=== PATIENT | male | born 1940 | race Caucasian/White ===

== ENCOUNTER 2017-02-27 15:26 | Inpatient (IN) ==
[2017-02-27 16:19] LABS: BUN/Creatinine Ratio 20 (6-26); Blood Urea Nitrogen 68 mg/dL (8-26); Calcium 8.6 mg/dL (8.6-10.8); Carbon Dioxide 22 mEq/L (19-29); Chloride 106 mEq/L (98-109); Glucose 172 mg/dL (70-99); Osmolality,Calculated 316 (280-300); Potassium 3.8 mEq/L (3.5-4.5); Sodium 141 mEq/L (136-145); eGFR For African Americans 22 (> 60); eGFR For Non-African Americans 18 (> 60)
[2017-02-27] MEDS ORDERED: 0.9 % Sodium Chloride 1,000 ML IVC ONE (16:52)
[2017-02-27 16:55] LABS: Basophils % 0.1 %; Hematocrit 35.4 % (37.5-50.1); Hemoglobin 11.8 g/dL (12.9-16.9); Immature Granulocytes % 0.9 % (0-4); Immature Platelets 3.7 % (1.1-6.1); Lymphocytes # 0.7 K/mcL (0.6-4.6); Lymphocytes % 6.6 %; Mean Corpuscular HGB Conc 33.3 g/dL (31.6-35.5); Mean Corpuscular Hemoglobin 31.1 pg (28.0-33.3); Mean Corpuscular Volume 93.2 fL (83.0-100.0); Mean Platelet Volume 10.6 fL (9.4-12.4); Monocytes # 0.8 K/mcL (0.0-1.3); Monocytes % 7.8 %; Neutrophils # 8.4 K/mcL (1.6-8.9); Platelet Count 216 K/mcL (140-400); Red Cell Distribution Width 14.6 % (11.5-14.5); Segmented Neutrophils % 84.6 %
[2017-02-27 16:55] LABS: Bilirubin,Urine Small (Negative); Blood,Urine Negative (Negative); Clarity,Urine Cloudy (Clear); Color,Urine Dark Yellow (Yellow); Glucose,Urine (UA) Normal (Normal); Ketones,Urine Negative (Negative); Leukocyte Esterase,Urine Negative (Negative); Nitrite,Urine Negative (Negative); Protein,Urine Negative (Neg-Trace); Specific Gravity,Urine 1.012 (1.010-1.025); Urobilinogen,Urine Normal (Normal)
[2017-02-27 17:09] LABS: Alanine Aminotransferase 62 Units/L (0-55); Albumin 2.5 g/dL (3.5-5.0); Albumin/Globulin Ratio 0.8 (1.1-2.2); Alkaline Phosphatase 211 Units/L (38-126); Aspartate Amino Transferase 42 Units/L (5-34); Bilirubin,Direct 4.1 mg/dL (0.0-0.5); Bilirubin,Indirect 1.1 mg/dL (0.0-1.2); Bilirubin,Total 5.2 mg/dL (0.2-1.2); Globulin 3.1 g/dL (2.4-3.5); Total Protein 5.6 g/dL (6.0-8.3)
[2017-02-27 17:10] LABS: Lipase < 4 Units/L (8-78)
--- NOTE | 2017-02-27 17:19 | Emergency Department Note ---
Disposition Clinical Impression: Hyperbilirubinemia Acute renal failure Qualifiers: Acute renal failure type: unspecified Qualified Code(s): N17.9 - Acute kidney failure, unspecified Disposition: Admitted As Inpatient Condition: Good Time of Disposition: 17:20 General Adult HPI - General Chief complaint: ED Recheck/Abnormal Lab/Rx Stated complaint: " sent me here for fluids" Time Seen by Provider: 02/27/17 15:45 Source: patient Limitations: no limitations Nursing Notes Reviewed: Yes Vital Signs Reviewed: Yes - History of Present Illness HPI Narrative: 76-year-old male sent in by primary care provider for reevaluation of labs. Patient states that he was recently diagnosed with a pancreatic mass and had a stent placed in his common bile duct due to jaundice. Patient states that he has been unable to produce satisfactory amount of urine over the past 3 days however was able to urinate today. Patient's creatinine was significantly elevated on outpatient testing and was sent for further evaluation. Patient denies fever, chills, nausea, vomiting, diarrhea. He noticed a change in color of his urine and stool associated with his jaundice. Patient denies chest pain , shortness of breath, abdominal pain, syncope. Pain Scale: 0 - Related Data Home Medications Medication Instructions Recorded Confirmed Aspirin Enteric Coated [Aspirin EC] 81 mg PO DAILY 04/15/16 02/26/17 Furosemide [Lasix] 40 mg PO DAILY 04/15/16 02/27/17 Oxycodone HCl/Acetaminophen 1 tab PO Q6H PRN 04/15/16 02/27/17 [Percocet 10-325 mg Tablet] Amiodarone HCl [Pacerone] 400 mg PO DAILY 02/19/17 02/27/17 Warfarin [Coumadin] 2.5 mg PO DAILY 02/19/17 02/26/17 Carvedilol [Coreg] 25 mg PO BID 02/26/17 02/27/17 Lisinopril [Zestril] 10 mg PO DAILY 02/26/17 02/27/17 Allergies Allergy/AdvReac Type Severity Reaction Status Date / Time No Known Allergies Allergy Verified 02/26/17 12:31 All systems ED: reviewed and negative except as stated. Past Medical History - Past Medical History Attestation: Yes The following information was validated with the patient. Medical history: Reports: arthritis, atrial fibrillation, CHF, COPD, coronary artery disease, DVT, hypertension, myocardial infarction, peripheral artery disease Surgical history: Reports: angioplasty/stent, knee replacement, other Psychiatric history: Reports: no psych history - Social History Smoking Status: Never smoker Smokeless Tobacco Status: No Alcohol use: Reports: none Drug use: Reports: none Physical Exam General: Alert and in no acute distress Skin: Warm, dry, intact, jaundiced skin with scleral icterus Head: Normocephalic and atraumatic Neck: Supple, trachea midline and no tenderness Cardiovascular: RRR, no murmur, normal perfusion Respiratory: CTAB, no wheezing, cough, or respiratory distress Musculoskeletal: Normal strength, no tenderness, swelling or deformity GI: Soft, nontender, nondistended. Bowel sounds present Neuro: A&O to person, place, time and situation. No focal deficits noted on exam Psychiatric: cooperative and appropriate mood and affect. - General Limitations: no limitations General appearance: alert Course Vital Signs Temperature 97.5 F L 02/27/17 15:53 Pulse Rate 75 02/27/17 15:53 Respiratory Rate 16 02/27/17 15:53 Blood Pressure 97/60 02/27/17 15:53 O2 Sat by Pulse Oximetry 96 02/27/17 15:53 Temperature 98.4 F 02/27/17 23:03 Pulse Rate 76 02/27/17 23:03 Respiratory Rate 16 02/27/17 23:03 Blood Pressure 116/74 02/27/17 23:03 O2 Sat by Pulse Oximetry 98 02/27/17 23:03 Oxygen Delivery Oxygen Delivery Room Air Medical Decision Making - MDM Narrative Medical decision making narrative: Upon review of the patient's chart he had received a CTA of the chest to rule out PE 15 days prior to today. No history of kidney failure and has never seen a urologist. Patient comfortable with the plan for admittance to the hospital for further care and evaluation. - Lab Data Result diagrams: 02/27/17 20:28 02/27/17 15:56 Lab Results 02/27/17 02/27/17 02/27/17 Range/Units 15:56 16:32 16:32 WBC (4.3-11.1) K/mcL RBC (4.19-5.50) M/mcL Hgb (12.9-16.9) g/dL Hct (37.5-50.1) % MCV (83.0-100.0) fL MCH (28.0-33.3) pg MCHC (31.6-35.5) g/dL RDW (11.5-14.5) % Plt Count (140-400) K/mcL MPV (9.4-12.4) fL Immature Gran % (0-4) % Seg Neutrophils % % Lymphocytes % % Monocytes % % Eosinophils % % Basophils % % Neutrophils # (1.6-8.9) K/mcL Lymphocytes # (0.6-4.6) K/mcL Monocytes # (0.0-1.3) K/mcL Eosinophils # (0.0-0.6) K/mcL Basophils # (0.0-0.2) K/mcL Immature Plt Fraction (1.1-6.1) % PT (9.4-12.1) Seconds INR APTT (26.0-36.0) Seconds Sodium 141 (136-145) mEq/L Potassium 3.8 (3.5-4.5) mEq/L Chloride 106 (98-109) mEq/L Carbon Dioxide 22 (19-29) mEq/L BUN 68 H (8-26) mg/dL Creatinine 3.39 H (0.72-1.25) mg/dL Est GFR ( Amer) 22 L (> 60) Est GFR (Non-Af Amer) 18 L (> 60) BUN/Creatinine Ratio 20 (6-26) Glucose 172 H (70-99) mg/dL Calculated Osmolality 316 H (280-300) Calcium 8.6 (8.6-10.8) mg/dL Total Bilirubin 5.2 H (0.2-1.2) mg/dL Direct Bilirubin 4.1 H (0.0-0.5) mg/dL Indirect Bilirubin 1.1 (0.0-1.2) mg/dL AST 42 H (5-34) Units/L ALT 62 H (0-55) Units/L Alkaline Phosphatase 211 H (38-126) Units/L Serum Total Protein 5.6 L (6.0-8.3) g/dL Albumin 2.5 L (3.5-5.0) g/dL Globulin 3.1 (2.4-3.5) g/dL Albumin/Globulin Ratio 0.8 L (1.1-2.2) Lipase < 4 L (8-78) Units/L Urine Color Dark Yellow (Yellow) Urine Clarity Cloudy A (Clear) Urine pH 6.0 (5.0-8.0) pH Units Ur Specific [place] 1.012 (1.010-1.025) Urine Protein Negative (Neg-Trace) mg/dL Urine Glucose (UA) Normal (Normal) mg/dL Urine Ketones Negative (Negative) mg/dL Urine Blood Negative (Negative) Urine Nitrite Negative (Negative) Urine Bilirubin Small H (Negative) Urine Urobilinogen Normal (Normal) mg/dL Ur Leukocyte Esterase Negative (Negative) Urine Microscopic WBC 0-3 (0-3) per hpf Ur Squamous Epith Cells Few (None-Few) per lpf Amorphous Sediment Few (Few) Ur Culture Indicated? NO (NO) Urine Creatinine 58 mg/dL Urine Microalbumin 6 mg/L Microalb/Creat Ratio 10 (0-30) Protein/Creatinin Ratio (0-0.20) mg/mg Urine Total Protein (1-14) mg/dL 02/27/17 02/27/17 02/27/17 Range/Units 16:32 16:40 20:28 WBC 9.9 9.7 (4.3-11.1) K/mcL RBC 3.80 L 3.91 L (4.19-5.50) M/mcL Hgb 11.8 L 12.2 L (12.9-16.9) g/dL Hct 35.4 L 36.9 L (37.5-50.1) % MCV 93.2 D 94.4 (83.0-100.0) fL MCH 31.1 31.2 (28.0-33.3) pg MCHC 33.3 33.1 (31.6-35.5) g/dL RDW 14.6 H 14.8 H (11.5-14.5) % Plt Count 216 229 (140-400) K/mcL MPV 10.6 10.9 (9.4-12.4) fL Immature Gran % 0.9 (0-4) % Seg Neutrophils % 84.6 % Lymphocytes % 6.6 % Monocytes % 7.8 % Eosinophils % 0.0 % Basophils % 0.1 % Neutrophils # 8.4 (1.6-8.9) K/mcL Lymphocytes # 0.7 (0.6-4.6) K/mcL Monocytes # 0.8 (0.0-1.3) K/mcL Eosinophils # 0.0 (0.0-0.6) K/mcL Basophils # 0.0 (0.0-0.2) K/mcL Immature Plt Fraction 3.7 (1.1-6.1) % PT (9.4-12.1) Seconds INR APTT (26.0-36.0) Seconds Sodium (136-145) mEq/L Potassium (3.5-4.5) mEq/L Chloride (98-109) mEq/L Carbon Dioxide (19-29) mEq/L BUN (8-26) mg/dL Creatinine (0.72-1.25) mg/dL Est GFR ( Amer) (> 60) Est GFR (Non-Af Amer) (> 60) BUN/Creatinine Ratio (6-26) Glucose (70-99) mg/dL Calculated Osmolality (280-300) Calcium (8.6-10.8) mg/dL Total Bilirubin (0.2-1.2) mg/dL Direct Bilirubin (0.0-0.5) mg/dL Indirect Bilirubin (0.0-1.2) mg/dL AST (5-34) Units/L ALT (0-55) Units/L Alkaline Phosphatase (38-126) Units/L Serum Total Protein (6.0-8.3) g/dL Albumin (3.5-5.0) g/dL Globulin (2.4-3.5) g/dL Albumin/Globulin Ratio (1.1-2.2) Lipase (8-78) Units/L Urine Color (Yellow) Urine Clarity (Clear) Urine pH (5.0-8.0) pH Units Ur Specific [place] (1.010-1.025) Urine Protein (Neg-Trace) mg/dL Urine Glucose (UA) (Normal) mg/dL Urine Ketones (Negative) mg/dL Urine Blood (Negative) Urine Nitrite (Negative) Urine Bilirubin (Negative) Urine Urobilinogen (Normal) mg/dL Ur Leukocyte Esterase (Negative) Urine Microscopic WBC (0-3) per hpf Ur Squamous Epith Cells (None-Few) per lpf Amorphous Sediment (Few) Ur Culture Indicated? (NO) Urine Creatinine 59 mg/dL Urine Microalbumin mg/L Microalb/Creat Ratio (0-30) Protein/Creatinin Ratio < 0.12 (0-0.20) mg/mg Urine Total Protein < 7 (1-14) mg/dL 02/27/17 Range/Units 20:28 WBC (4.3-11.1) K/mcL RBC (4.19-5.50) M/mcL Hgb (12.9-16.9) g/dL Hct (37.5-50.1) % MCV (83.0-100.0) fL MCH (28.0-33.3) pg MCHC (31.6-35.5) g/dL RDW (11.5-14.5) % Plt Count (140-400) K/mcL MPV (9.4-12.4) fL Immature Gran % (0-4) % Seg Neutrophils % % Lymphocytes % % Monocytes % % Eosinophils % % Basophils % % Neutrophils # (1.6-8.9) K/mcL Lymphocytes # (0.6-4.6) K/mcL Monocytes # (0.0-1.3) K/mcL Eosinophils # (0.0-0.6) K/mcL Basophils # (0.0-0.2) K/mcL Immature Plt Fraction (1.1-6.1) % PT 12.3 H (9.4-12.1) Seconds INR 1.1 APTT 26.5 (26.0-36.0) Seconds Sodium (136-145) mEq/L Potassium (3.5-4.5) mEq/L Chloride (98-109) mEq/L Carbon Dioxide (19-29) mEq/L BUN (8-26) mg/dL Creatinine (0.72-1.25) mg/dL Est GFR ( Amer) (> 60) Est GFR (Non-Af Amer) (> 60) BUN/Creatinine Ratio (6-26) Glucose (70-99) mg/dL Calculated Osmolality (280-300) Calcium (8.6-10.8) mg/dL Total Bilirubin (0.2-1.2) mg/dL Direct Bilirubin (0.0-0.5) mg/dL Indirect Bilirubin (0.0-1.2) mg/dL AST (5-34) Units/L ALT (0-55) Units/L Alkaline Phosphatase (38-126) Units/L Serum Total Protein (6.0-8.3) g/dL Albumin (3.5-5.0) g/dL Globulin (2.4-3.5) g/dL Albumin/Globulin Ratio (1.1-2.2) Lipase (8-78) Units/L Urine Color (Yellow) Urine Clarity (Clear) Urine pH (5.0-8.0) pH Units Ur Specific [place] (1.010-1.025) Urine Protein (Neg-Trace) mg/dL Urine Glucose (UA) (Normal) mg/dL Urine Ketones (Negative) mg/dL Urine Blood (Negative) Urine Nitrite (Negative) Urine Bilirubin (Negative) Urine Urobilinogen (Normal) mg/dL Ur Leukocyte Esterase (Negative) Urine Microscopic WBC (0-3) per hpf Ur Squamous Epith Cells (None-Few) per lpf Amorphous Sediment (Few) Ur Culture Indicated? (NO) Urine Creatinine mg/dL Urine Microalbumin mg/L Microalb/Creat Ratio (0-30) Protein/Creatinin Ratio (0-0.20) mg/mg Urine Total Protein (1-14) mg/dL Critical Care Time Critical Care Time: Yes Total Critical Care Time: 45 Attestation: The high probability of a clinically significant, sudden or life threatening deterioration of the 45 system(s) required my full and direct attention, intervention and personal management. The aggregate critical care time was 45 minutes. This time is in addition to time spent performing reported procedures but includes the following: x Data Review and interpretation x Patient assessment and monitoring of vital signs x Documentation x Medication orders and management
[2017-02-27 17:23] LABS: Squamous Epithelial Cell,Urine Few per lpf (None-Few)
[2017-02-27 17:24] LABS: Amorphous Sediment,Urine Few (Few); WBC,Urine 0-3 per hpf (0-3)
[2017-02-27] MEDS ORDERED: Naloxone 0.4 MG/ML INJ IVP PRN (18:22)
[2017-02-27] MEDS ORDERED: *HR* OxyCODONE/APAP 10/325 TABLET PO PRN (18:24)
--- NOTE | 2017-02-27 18:33 | Internal Med History&Physical ---
<Jason Wilson H - Last Filed: 02/27/17 20:54> Date of Encounter: 02/27/17 Internal Medicine - H&P: HPI History of present illness: Mr. Rey is a 76 year old male Internal Medicine - H&P: Meds Aspirin Enteric Coated [Aspirin EC] 81 mg PO DAILY 04/15/16 [History] Furosemide [Lasix] 40 mg PO DAILY 04/15/16 [History] Oxycodone HCl/Acetaminophen [Percocet 10-325 mg Tablet] 1 tab PO Q6H PRN [History] Amiodarone HCl [Pacerone] 400 mg PO DAILY 02/19/17 [History] Warfarin [Coumadin] 2.5 mg PO DAILY 02/19/17 [History] Carvedilol [Coreg] 25 mg PO BID 02/26/17 [History] Lisinopril [Zestril] 10 mg PO DAILY 02/26/17 [History] Allergies No Known Allergies Allergy (Verified 02/26/17 12:31) All Systems PM: A 10-system review of systems was performed and is negative for pertinent findings except as documented above in the HPI. - Constitutional Vitals: Temp Pulse Resp BP Pulse Ox 97.7 F 85 18 116/71 98 02/27/17 19:33 02/27/17 19:33 02/27/17 19:33 02/27/17 19:33 02/27/17 19:33 Internal Med - H&P Results - Labs CBC & Chem 7: 02/27/17 20:28 02/27/17 15:56 Labs: Short CBC 02/27/17 Range/Units 20:28 WBC 9.7 (4.3-11.1) K/mcL Hgb 12.2 L (12.9-16.9) g/dL Hct 36.9 L (37.5-50.1) % Plt Count 229 (140-400) K/mcL - Attending Attestation The patient is refusing blood thinners, he was offered heparin. Admitted as inpatient, expected to stay more than 2 midnights. Full code. Time spent on this admission 40 minutes. High risk of complications from acute renal failure <Carlyn Crook M - Last Filed: 02/27/17 21:58> Date of Encounter: 02/27/17 Time of Encounter: 18:31 Assessment and Plan (1) Acute renal failure Current visit: Yes Status: Acute Patient's creatinine has ranged 3.3-3.7 over the last 3 days, trending down. Previous Cr of 1.5 on 02/17 and previous baseline looks to be 1.1. Patient received IV contrast for a chest CT on 01/23 and then again for CT abdomen on 02/11 and later that same day for a CTA. Patient likely has contrast related nephropathy. IV fluids, 1L bolus given in ED. 0.9NS at 100mL/hr. Hold lisinopril and lasix Random urine Protein/Creatinine and sodium. UA was not concerning for infection. Retroperitoneal ultrasound Recheck chemistry tomorrow morning. Qualifiers: Acute renal failure type: unspecified Qualified Code(s): N17.9 - Acute kidney failure, unspecified (2) Pancreatic mass Current visit: Yes Status: Acute Patient recently diagnosed with pancreatic mass, had ERCP with biopsy and biliary stent placed yesterday by Dr. Rojas. Biopsy results are not back yet. Patient has follow up scheduled with Dr. Rojas on Thursday. (3) COPD (chronic obstructive pulmonary disease) Current visit: Yes Status: Acute Patient denies any increased shortness of breath or cough. Duonebs QID PRN for wheezing or shortness of breath. Qualifiers: COPD type: unspecified COPD Qualified Code(s): J44.9 - Chronic obstructive pulmonary disease, unspecified (4) History of DVT (deep vein thrombosis) Current visit: Yes Status: Acute Patient on aspirin and coumadin for history of DVT. These were held for ERCP yesterday and he was instructed not to restart until he follow up with Dr. Rojas on Thursday. Will start heparin drip due to patient's risk for DVT/PE (5) Afib Current visit: Yes Status: Acute Patient with chronic afib on amiodarone, carvedilol for rate and rhythm control and coumadin for anti-coagulation. His coumadin has been held for 13 days for his ERCP. Given his afib, history of DVT, and recent TIA-like symptoms, will start a heparin drip for prophylaxis. Qualifiers: Atrial fibrillation type: chronic Qualified Code(s): I48.2 - Chronic atrial fibrillation (6) Hyperbilirubinemia Current visit: Yes Status: Acute (7) DVT prophylaxis Current visit: Yes Status: Acute Ambulate TID anti-embolic stockings Heparin drip Internal Medicine - H&P: HPI Chief complaint: acute kidney failure Admitted From: Emergency Dept Plans for Post Hospital Care: Home History of present illness: Mr. Rey is a 76 year old male with COPD, afib, CAD, history of DVT, HTN, PAD, recent diagnosis of pancreatic mass s/p biopsy and biliary stent placement yesterday who presented to the ED today at the instruction of his PCP due to elevated creatinine. His creatinine over the last few days has been 3.3-3.7, up from his previous value of 1.5 on 02/17 and up from his normal baseline of 1.1. He reports 3 days ago, he had an episode of lip numbness and blurry vision that lasted several hours, he then noted decreased urine output. He reports his urine output has increased, but his urine is still dark. Denies any pain or burning with urination. Denies any headache, chest pain, palpitations, decreased appetite or poor oral intake. He had been losing weight (reportedly 75 lbs) and getting progressively weaker over the last 6 months, and his PCP evaluated him earlier this month with a CT of the Abdomen and found a pancreatic mass suspicious for malignancy, and there was concern for PE, so a CTA was then obtained (negative for PE). Yesterday, patient had an ERCP with Dr. Rojas and had a biopsy of the pancreatic mass and biliary stent placed for obstructive jaundice. Evaluation in the ER was consistent with the MYRANDA with creatinine of 3.39 and BUN of 68. Potassium was normal at 3.8, and CO2 was normal at 22. Bilirubin has come down to 5.2 from 7.9 yesterday. On exam, patient alert and oriented, jaundiced, in no distress. Heart has irregular rhythm, lungs are clear to auscultation bilaterally. Past Med Surg Social Fam HX - Past Medical History Medical history: arthritis, atrial fibrillation, CHF, COPD, coronary artery disease, DVT, hypertension, myocardial infarction, peripheral artery disease Psychiatric history: no psych history - Past Surgical History Surgical History: angioplasty/stent, knee replacement, other - Social History Smoking Status: Former smoker Smokeless Tobacco Status: No Alcohol use: none Drug use: none - Family History Mother History Unknown: Yes Living Status: All Systems PM: A 10-system review of systems was performed and is negative for pertinent findings except as documented above in the HPI. - Constitutional Constitutional: no chills, no fever(s), no night sweats - EENT Eyes: no change in vision, no discharge, no pain, no photophobia Ears: no ear discharge, no ear pain, no tinnitus Nose, mouth and throat: no dysphagia, no nasal discharge, no neck pain, no sore throat - Cardiovascular Cardiovascular ROS IM: no chest pain, no diaphoresis, no dyspnea, no lightheadedness, no palpitations, no syncope - Respiratory Respiratory: no cough, no dyspnea, no wheezing, no excessive phlegm production - Gastrointestinal Gastrointestinal: no abdominal pain, no diarrhea, no hematemesis, no hematochezia, no melena, no nausea, no vomiting - Genitourinary Genitourinary ROS male: difficulty urinating (low urine output for last 3 days) - Musculoskeletal Musculoskeletal ROS IM: no numbness, no tingling - Integumentary Integumentary IM: no rash, no unusual bruising - Neurological Neurological ROS: no confusion, no convulsions, no focal weakness, no numbness, no tingling, no tremor(s) - Hematologic/Lymphatic Hematologic/Lymphatic: no easy bruising - Constitutional Vitals: Temp Pulse Resp BP Pulse Ox 97.5 F L 73 14 111/74 97 02/27/17 15:53 02/27/17 17:15 02/27/17 18:17 02/27/17 18:17 02/27/17 17:15 General appearance: Present: A&O X 3, pleasant, no acute distress - Head Head exam: Present: atraumatic, normocephalic - Eye Eye exam: Present: PERRL, conjuntiva pink, sclera anicteric Pupils: Present: PERRL - Neck Neck exam general surgery: Present: supple, trachea midline. Absent: lymphadenopathy - Respiratory Respiratory exam: Present: CTAB. Absent: accessory muscle use, rales, rhonchi, wheezes - Cardiovascular Cardiovascular exam: Present: RRR, +S1, +S2. Absent: diastolic murmur, gallop, rubs, systolic murmur - GI/Abdominal GI/Abdominal exam: Present: normal bowel sounds, soft, no peritoneal signs. Absent: distended, tenderness - Extremities Exam Extremities exam: Present: pedal edema (bilateral lower extremity edema), warm, radial pulses palpable and symetrical. Absent: calf tenderness, cyanotic - Neurological Exam Neurological exam: Present: CN II-XII intact, oriented X3, no focal deficits. Absent: facial droop, speech deficit - Skin Skin exam: Present: dry, intact Additional comments: jaundice Internal Med - H&P Results - Labs CBC & Chem 7: 02/27/17 20:28 02/27/17 15:56 Labs: All Lab Results (24 Hours) 02/27/17 02/27/17 02/27/17 Range/Units 15:56 16:32 16:32 WBC (4.3-11.1) K/mcL RBC (4.19-5.50) M/mcL Hgb (12.9-16.9) g/dL Hct (37.5-50.1) % MCV (83.0-100.0) fL MCH (28.0-33.3) pg MCHC (31.6-35.5) g/dL RDW (11.5-14.5) % Plt Count (140-400) K/mcL MPV (9.4-12.4) fL Immature Gran % (0-4) % Seg Neutrophils % % Lymphocytes % % Monocytes % % Eosinophils % % Basophils % % Neutrophils # (1.6-8.9) K/mcL Lymphocytes # (0.6-4.6) K/mcL Monocytes # (0.0-1.3) K/mcL Eosinophils # (0.0-0.6) K/mcL Basophils # (0.0-0.2) K/mcL Immature Plt Fraction (1.1-6.1) % Sodium 141 (136-145) mEq/L Potassium 3.8 (3.5-4.5) mEq/L Chloride 106 (98-109) mEq/L Carbon Dioxide 22 (19-29) mEq/L BUN 68 H (8-26) mg/dL Creatinine 3.39 H (0.72-1.25) mg/dL Est GFR ( Amer) 22 L (> 60) Est GFR (Non-Af Amer) 18 L (> 60) BUN/Creatinine Ratio 20 (6-26) Glucose 172 H (70-99) mg/dL Calculated Osmolality 316 H (280-300) Calcium 8.6 (8.6-10.8) mg/dL Total Bilirubin 5.2 H (0.2-1.2) mg/dL Direct Bilirubin 4.1 H (0.0-0.5) mg/dL Indirect Bilirubin 1.1 (0.0-1.2) mg/dL AST 42 H (5-34) Units/L ALT 62 H (0-55) Units/L Alkaline Phosphatase 211 H (38-126) Units/L Serum Total Protein 5.6 L (6.0-8.3) g/dL Albumin 2.5 L (3.5-5.0) g/dL Globulin 3.1 (2.4-3.5) g/dL Albumin/Globulin Ratio 0.8 L (1.1-2.2) Lipase < 4 L (8-78) Units/L Urine Color Dark Yellow (Yellow) Urine Clarity Cloudy A (Clear) Urine pH 6.0 (5.0-8.0) pH Units Ur Specific [place] 1.012 (1.010-1.025) Urine Protein Negative (Neg-Trace) mg/dL Urine Glucose (UA) Normal (Normal) mg/dL Urine Ketones Negative (Negative) mg/dL Urine Blood Negative (Negative) Urine Nitrite Negative (Negative) Urine Bilirubin Small H (Negative) Urine Urobilinogen Normal (Normal) mg/dL Ur Leukocyte Esterase Negative (Negative) Urine Microscopic WBC 0-3 (0-3) per hpf Ur Squamous Epith Cells Few (None-Few) per lpf Amorphous Sediment Few (Few) Ur Culture Indicated? NO (NO) Urine Creatinine 58 mg/dL Urine Microalbumin 6 mg/L Microalb/Creat Ratio 10 (0-30) Protein/Creatinin Ratio (0-0.20) mg/mg Urine Total Protein (1-14) mg/dL 02/27/17 02/27/17 Range/Units 16:32 16:40 WBC 9.9 (4.3-11.1) K/mcL RBC 3.80 L (4.19-5.50) M/mcL Hgb 11.8 L (12.9-16.9) g/dL Hct 35.4 L (37.5-50.1) % MCV 93.2 D (83.0-100.0) fL MCH 31.1 (28.0-33.3) pg MCHC 33.3 (31.6-35.5) g/dL RDW 14.6 H (11.5-14.5) % Plt Count 216 (140-400) K/mcL MPV 10.6 (9.4-12.4) fL Immature Gran % 0.9 (0-4) % Seg Neutrophils % 84.6 % Lymphocytes % 6.6 % Monocytes % 7.8 % Eosinophils % 0.0 % Basophils % 0.1 % Neutrophils # 8.4 (1.6-8.9) K/mcL Lymphocytes # 0.7 (0.6-4.6) K/mcL Monocytes # 0.8 (0.0-1.3) K/mcL Eosinophils # 0.0 (0.0-0.6) K/mcL Basophils # 0.0 (0.0-0.2) K/mcL Immature Plt Fraction 3.7 (1.1-6.1) % Sodium (136-145) mEq/L Potassium (3.5-4.5) mEq/L Chloride (98-109) mEq/L Carbon Dioxide (19-29) mEq/L BUN (8-26) mg/dL Creatinine (0.72-1.25) mg/dL Est GFR ( Amer) (> 60) Est GFR (Non-Af Amer) (> 60) BUN/Creatinine Ratio (6-26) Glucose (70-99) mg/dL Calculated Osmolality (280-300) Calcium (8.6-10.8) mg/dL Total Bilirubin (0.2-1.2) mg/dL Direct Bilirubin (0.0-0.5) mg/dL Indirect Bilirubin (0.0-1.2) mg/dL AST (5-34) Units/L ALT (0-55) Units/L Alkaline Phosphatase (38-126) Units/L Serum Total Protein (6.0-8.3) g/dL Albumin (3.5-5.0) g/dL Globulin (2.4-3.5) g/dL Albumin/Globulin Ratio (1.1-2.2) Lipase (8-78) Units/L Urine Color (Yellow) Urine Clarity (Clear) Urine pH (5.0-8.0) pH Units Ur Specific [place] (1.010-1.025) Urine Protein (Neg-Trace) mg/dL Urine Glucose (UA) (Normal) mg/dL Urine Ketones (Negative) mg/dL Urine Blood (Negative) Urine Nitrite (Negative) Urine Bilirubin (Negative) Urine Urobilinogen (Normal) mg/dL Ur Leukocyte Esterase (Negative) Urine Microscopic WBC (0-3) per hpf Ur Squamous Epith Cells (None-Few) per lpf Amorphous Sediment (Few) Ur Culture Indicated? (NO) Urine Creatinine 59 mg/dL Urine Microalbumin mg/L Microalb/Creat Ratio (0-30) Protein/Creatinin Ratio < 0.12 (0-0.20) mg/mg Urine Total Protein < 7 (1-14) mg/dL - Diagnostic Studies Chest x-ray Additional comments: Chest X-Ray 02/27/17 17:35 IMPRESSION: Prominent interstitial change related to COPD, with focal increased peribronchovascular markings in the right infrahilar region. Though these changes are concerning for bronchiolitis or bronchopneumonia, they appear unchanged from 2012 and could represent chronic postinflammatory change. No definite new infiltrate is seen. D/ / Mathew Eddy MD / Mathew Eddy MD Interpreting Provider: Mathew Eddy MD
[2017-02-27] MEDS: 0.9 % Sodium Chloride 1,000 ML IVC SCH (18:53)
[2017-02-27 19:28] LABS: Creatinine,Urine 58 mg/dL; Creatinine,Urine 59 mg/dL; Microalbum/Creatinine Ratio,Ur 10 (0-30); Microalbumin,Urine 6 mg/L
[2017-02-27 19:30] LABS: Protein/Creatinine Ratio,Urine < 0.12 mg/mg (0-0.20)
[2017-02-27] MEDS ORDERED: Ipratropium/Albuterol Neb 3 ML IH PRN (19:39)
--- NOTE | 2017-02-27 19:53 | Event Note ---
Date of Encounter: 02/27/17 Time of Encounter: 19:51 1) acute renal failure likely secondary to contrast-induced nephropathy Continue IV fluids, hold nephrotoxic agents, consider calling nephrology if not improving, the patient is finally making some urine 2. Pancreatic mass followed by Dr. Rojas 3. History of atrial fibrillation who has been on Coumadin up until 13 days ago , this was held for an ERCP Start low-dose heparin drip with no bolus Continue amiodarone and carvedilol Agree with EXPLOSIVE OPERATOR GRENADE Carlyn Crook. For this encounter, I have reviewed the EXPLOSIVE OPERATOR GRENADE or PA documentation, treatment plan, and medical decision making; and I have had face to face time with this patient. I examined this patient and my medical decision-making was reviewed with the MARGARINE CHURN OPERATOR/PA/Advanced Practice Nurse/Resident Physician. I agree with the documented findings, disposition and treatment plan as described except to the extent set forth below.
[2017-02-27] MEDS ORDERED: Heparin 25,000 UNIT/500 ML D5W 25,000 UNIT/500 ML MLS IVC SCH (20:00)
[2017-02-27 20:41] LABS: Hematocrit 36.9 % (37.5-50.1); Hemoglobin 12.2 g/dL (12.9-16.9); Mean Corpuscular HGB Conc 33.1 g/dL (31.6-35.5); Mean Corpuscular Hemoglobin 31.2 pg (28.0-33.3); Mean Corpuscular Volume 94.4 fL (83.0-100.0); Mean Platelet Volume 10.9 fL (9.4-12.4); Platelet Count 229 K/mcL (140-400); Red Blood Count 3.91 M/mcL (4.19-5.50); Red Cell Distribution Width 14.8 % (11.5-14.5)
[2017-02-27 20:52] LABS: INR 1.1; Prothrombin Time 12.3 Seconds (9.4-12.1)
[2017-02-27 20:55] LABS: Activated Partial Thrombo Time 26.5 Seconds (26.0-36.0)
[2017-02-27] MEDS ORDERED: *HR* Heparin 5,000 UNIT/ML VIAL SQ SCH (22:00)
[2017-02-28 04:52] LABS: Basophils % 0.4 %; Eosinophils % 0.4 %; Hematocrit 34.6 % (37.5-50.1); Hemoglobin 11.6 g/dL (12.9-16.9); Immature Granulocytes % 0.6 % (0-4); Lymphocytes # 0.9 K/mcL (0.6-4.6); Mean Corpuscular HGB Conc 33.5 g/dL (31.6-35.5); Mean Corpuscular Hemoglobin 30.9 pg (28.0-33.3); Mean Platelet Volume 10.8 fL (9.4-12.4); Monocytes # 0.8 K/mcL (0.0-1.3); Monocytes % 10.4 %; Neutrophils # 6.1 K/mcL (1.6-8.9); Platelet Count 228 K/mcL (140-400); Red Blood Count 3.76 M/mcL (4.19-5.50); Red Cell Distribution Width 14.7 % (11.5-14.5); Segmented Neutrophils % 77.2 %
[2017-02-28 05:09] LABS: Calcium 8.2 mg/dL (8.6-10.8); Potassium 3.7 mEq/L (3.5-4.5)
[2017-02-28] MEDS: *HR* Amiodarone 200 MG TABLET PO SCH (08:58)
--- NOTE | 2017-02-28 13:50 | Internal Med Progress Note ---
Date of Encounter: 02/28/17 Time of Encounter: 13:47 - Assessment and plan (1) Acute renal failure Current Visit: Yes Status: Acute Assessment and plan: Patient's creatinine has ranged 3.3-3.7 over the last 3 days, trending down. Cr today is 3.24 (on admission 3.4), baseine Cr is ~1.1 Patient received IV contrast for a chest CT on 01/23 and then again for CT abdomen on 02/11 and later that same day for a CTA. Patient likely has contrast related nephropathy. IV fluids, 1L bolus given in ED. Currently on 0.9NS at 100mL/hr. Will give an additional 1L stat Renal USS unremarkable for chronic kidney disease or obstruction Hold lisinopril and lasix Urine esosinophils negative Consider renal consult-patient adamantly refused for now Avoid nephrotoxins Qualifiers: Acute renal failure type: unspecified Qualified Code(s): N17.9 - Acute kidney failure, unspecified (2) Hyperbilirubinemia Current Visit: Yes Status: Chronic Assessment and plan: Chronic, stable, improving (3) Pancreatic mass Current Visit: Yes Status: Chronic Assessment and plan: Patient recently diagnosed with pancreatic mass, had ERCP with biopsy and biliary stent placed yesterday by Dr. Rojas. Pending Biopsy report If patient stays till Thursday, will consult Dr. Rojas (4) COPD (chronic obstructive pulmonary disease) Current Visit: Yes Status: Chronic Assessment and plan: Patient denies any increased shortness of breath or cough. Duonebs QID PRN for wheezing or shortness of breath. Qualifiers: COPD type: unspecified COPD Qualified Code(s): J44.9 - Chronic obstructive pulmonary disease, unspecified (5) History of DVT (deep vein thrombosis) Current Visit: Yes Status: Acute Assessment and plan: Patient on aspirin and coumadin for history of DVT. These were held for ERCP yesterday and he was instructed not to restart until he follow up with Dr. Rojas on Thursday. Will restart home dose of Coumadin, continue to bridge with heparin, I do not anticipate a procedure at this time (6) Afib Current Visit: Yes Status: Chronic Assessment and plan: hronic afib on amiodarone, carvedilol for rate and rhythm control and coumadin for anti-coagulation Qualifiers: Atrial fibrillation type: chronic Qualified Code(s): I48.2 - Chronic atrial fibrillation - Subjective Interval history: Initial encounter Seen at bedside 76 M with PMH of CAD s/p RCA CORTEZ (2012), Mild AI per prior ECHO, Afib on anticoagulation, DVT, PVD, COPD, HTN, Obstructive jaundice s/p ERCP for pancreatic mass, biopsy report pending Admitted for management of MYRANDA, suspected to be contrast induced in the setting of patient with cardiac disease and on ACEI/Diuretics Patient is fixated on "not getting dialysis" he denies new complains - Constitutional Vitals: Temp Pulse Resp BP Pulse Ox 98.4 F 71 16 113/68 96 02/28/17 11:12 02/28/17 11:12 02/28/17 11:12 02/28/17 11:12 02/28/17 11:12 General appearance: Present: A&O X 3, pleasant, no acute distress - Head Head exam: Present: atraumatic, normocephalic - Eye Eye exam: Present: PERRL, scleral icterus, conjuntiva pink Pupils: Present: PERRL - Neck Neck exam general surgery: Present: supple, trachea midline. Absent: lymphadenopathy - Respiratory Respiratory exam: Present: CTAB. Absent: accessory muscle use, rales, rhonchi, wheezes - Cardiovascular Cardiovascular exam: Present: irregular rhythm, +S1, +S2. Absent: diastolic murmur, JVD, systolic murmur - GI/Abdominal GI/Abdominal exam: Present: normal bowel sounds, soft, no peritoneal signs. Absent: distended, tenderness - Extremities Exam Extremities exam: Present: warm, radial pulses palpable and symetrical. Absent : calf tenderness, cyanotic, pedal edema Additional comments: Diffuse venous varices of both LE with skin icterus - Neurological Exam Neurological exam: Present: alert, CN II-XII intact, oriented X3, no focal deficits. Absent: pronater drift, facial droop, speech deficit - Skin Skin exam: Present: dry. Absent: normal color Internal Medicine: Result - Labs CBC & Chem 7: 02/28/17 03:19 02/28/17 03:19 Labs: Short CBC 02/28/17 Range/Units 03:19 WBC 7.9 (4.3-11.1) K/mcL Hgb 11.6 L (12.9-16.9) g/dL Hct 34.6 L (37.5-50.1) % Plt Count 228 (140-400) K/mcL Neutrophils # 6.1 (1.6-8.9) K/mcL BMP 02/28/17 03:19 Sodium 138 Potassium 3.7 Chloride 106 Carbon Dioxide 23 BUN 65 H Creatinine 3.24 H Glucose 105 H Calcium 8.2 L - ABG Interpretation ABG results: PT/INR, D-dimer PT 12.3 Seconds (9.4-12.1) H 02/27/17 20:28 - VTE Documentation of Mechanical Device: Graduated compression elastic hosiery Consult Discharge Plan - Plan Referrals: Hector Shabazz MD [Primary Care Provider] - (Web requested 02-27-17)
[2017-02-28] MEDS ORDERED: 0.9 % Sodium Chloride 1,000 ML IVC ONE (13:52)
[2017-02-28] MEDS: 0.9 % Sodium Chloride 1,000 ML IVC SCH (16:30)
[2017-02-28] MEDS ORDERED: *HR* Warfarin 2.5 MG TABLET PO ONE (18:00)
[2017-03-01 04:50] LABS: INR 1.1; Prothrombin Time 12.1 Seconds (9.4-12.1)
[2017-03-01 04:52] LABS: Basophils % 0.4 %; Eosinophils % 0.6 %; Hemoglobin 11.8 g/dL (12.9-16.9); Immature Granulocytes % 0.9 % (0-4); Lymphocytes % 13.5 %; Mean Corpuscular HGB Conc 32.8 g/dL (31.6-35.5); Mean Corpuscular Volume 94.5 fL (83.0-100.0); Mean Platelet Volume 10.7 fL (9.4-12.4); Monocytes # 0.8 K/mcL (0.0-1.3); Monocytes % 11.2 %; Neutrophils # 5.2 K/mcL (1.6-8.9); Platelet Count 240 K/mcL (140-400); Red Blood Count 3.81 M/mcL (4.19-5.50); Segmented Neutrophils % 73.4 %
[2017-03-01 04:53] LABS: Activated Partial Thrombo Time 27.4 Seconds (26.0-36.0)
[2017-03-01 05:12] LABS: Calcium 8.4 mg/dL (8.6-10.8); Potassium 3.8 mEq/L (3.5-4.5)
[2017-03-01] MEDS: *HR* Amiodarone 200 MG TABLET PO SCH (09:36)
--- NOTE | 2017-03-01 14:21 | Internal Med Progress Note ---
Date of Encounter: 03/01/17 Time of Encounter: 14:19 - Assessment and plan (1) Acute renal failure Current Visit: Yes Status: Acute Assessment and plan: Patient's creatinine has ranged 3.3-3.7 over the last 3 days, trending down. Cr today is 3.24 (on admission 3.4), Patient received IV contrast for a chest CT on 01/23 and then again for CT abdomen on 02/11 and later that same day for a CTA. Patient likely has contrast related nephropathy. Cr improved today to 2.11, GFR improved from 19 to 31 baseline Cr is ~1.1 Received 2L IVF bolus Currently on 0.9NS at 100mL/hr, continue same Renal USS unremarkable for chronic kidney disease or obstruction Continue to hold lisinopril and lasix Urine esosinophils negative Consider renal consult-patient adamantly refused for now Avoid nephrotoxins Qualifiers: Acute renal failure type: unspecified Qualified Code(s): N17.9 - Acute kidney failure, unspecified (2) Hyperbilirubinemia Current Visit: Yes Status: Chronic Assessment and plan: Chronic, stable, improving (3) Pancreatic mass Current Visit: Yes Status: Chronic Assessment and plan: Patient recently diagnosed with pancreatic mass, had ERCP with biopsy and biliary stent placed yesterday by Dr. Rojas. Pending Biopsy report If patient stays till Thursday, will consult Dr. Rojas (4) COPD (chronic obstructive pulmonary disease) Current Visit: Yes Status: Chronic Assessment and plan: Patient denies any increased shortness of breath or cough. Duonebs QID PRN for wheezing or shortness of breath. Qualifiers: COPD type: unspecified COPD Qualified Code(s): J44.9 - Chronic obstructive pulmonary disease, unspecified (5) History of DVT (deep vein thrombosis) Current Visit: Yes Status: Acute Assessment and plan: INR 1.1 Patient on aspirin and coumadin for history of DVT. These were held for ERCP yesterday and he was instructed not to restart until he follow up with Dr. Rojas on Thursday. Continue home dose of Coumadin, continue to bridge with heparin, I do not anticipate a procedure at this time (6) Afib Current Visit: Yes Status: Chronic Assessment and plan: Chronic afib on amiodarone, carvedilol for rate and rhythm control and coumadin for anti-coagulation Qualifiers: Atrial fibrillation type: chronic Qualified Code(s): I48.2 - Chronic atrial fibrillation - Subjective Interval history: Seen at bedside 76 M with PMH of CAD s/p RCA CORTEZ (2012), Mild AI per prior ECHO, Afib on anticoagulation, DVT, PVD, COPD, HTN, Obstructive jaundice s/p ERCP for pancreatic mass, biopsy report pending Admitted for management of MYRANDA, suspected to be contrast induced in the setting of patient with cardiac disease and on ACEI/Diuretics Creatinine improved today ECHO report is pending - Constitutional Vitals: Temp Pulse Resp BP Pulse Ox 97.7 F 69 18 122/72 93 03/01/17 11:19 03/01/17 11:19 03/01/17 11:19 03/01/17 11:19 03/01/17 11:19 General appearance: Present: A&O X 3, pleasant, no acute distress - Eye Eye exam: Present: PERRL, scleral icterus, conjuntiva pink Pupils: Present: PERRL - Neck Neck exam general surgery: Present: supple, trachea midline. Absent: lymphadenopathy - Respiratory Respiratory exam: Present: CTAB. Absent: accessory muscle use, rales, rhonchi, wheezes - Cardiovascular Cardiovascular exam: Present: RRR, +S1, +S2. Absent: diastolic murmur, gallop, rubs, systolic murmur - GI/Abdominal GI/Abdominal exam: Present: normal bowel sounds, soft, no peritoneal signs. Absent: distended, tenderness - Extremities Exam Additional comments: Diffuse venous varices of both LE with skin icterus - Back Exam Back exam: Absent: CVA tenderness (L), CVA tenderness (R) - Neurological Exam Neurological exam: Present: alert, CN II-XII intact, oriented X3, no focal deficits. Absent: pronater drift, facial droop, speech deficit - Skin Skin exam: Present: dry. Absent: normal color (icteric) Internal Medicine: Result - Labs CBC & Chem 7: 03/01/17 03:24 03/01/17 03:24 Labs: Short CBC 03/01/17 Range/Units 03:24 WBC 7.0 (4.3-11.1) K/mcL Hgb 11.8 L (12.9-16.9) g/dL Hct 36.0 L (37.5-50.1) % Plt Count 240 (140-400) K/mcL Neutrophils # 5.2 (1.6-8.9) K/mcL BMP 03/01/17 03:24 Sodium 141 Potassium 3.8 Chloride 109 Carbon Dioxide 20 BUN 49 H D Creatinine 2.11 H Glucose 101 H Calcium 8.4 L - ABG Interpretation ABG results: PT/INR, D-dimer PT 12.1 Seconds (9.4-12.1) 03/01/17 03:24 - VTE Documentation of Mechanical Device: Graduated compression elastic hosiery Consult Discharge Plan - Plan Referrals: Hector Shabazz MD [Primary Care Provider] - (Web requested 02-27-17)
[2017-03-01] MEDS ORDERED: *HR* Heparin 5,000 UNIT/ML VIAL IVP PRN ×2 (14:59)
[2017-03-01] MEDS: *HR* Warfarin 2.5 MG TABLET PO SCH (17:48)
[2017-03-02 04:01] LABS: INR 1.1; Prothrombin Time 12.1 Seconds (9.4-12.1)
[2017-03-02 04:04] LABS: Activated Partial Thrombo Time 27.7 Seconds (26.0-36.0)
[2017-03-02 04:09] LABS: Basophils % 0.5 %; Eosinophils # 0.1 K/mcL (0.0-0.6); Eosinophils % 1.1 %; Hematocrit 35.9 % (37.5-50.1); Hemoglobin 11.6 g/dL (12.9-16.9); Immature Granulocytes % 0.9 % (0-4); Lymphocytes # 1.1 K/mcL (0.6-4.6); Lymphocytes % 12.4 %; Mean Corpuscular HGB Conc 32.3 g/dL (31.6-35.5); Mean Corpuscular Hemoglobin 30.9 pg (28.0-33.3); Mean Corpuscular Volume 95.7 fL (83.0-100.0); Mean Platelet Volume 10.3 fL (9.4-12.4); Monocytes # 0.9 K/mcL (0.0-1.3); Monocytes % 9.7 %; Neutrophils # 6.6 K/mcL (1.6-8.9); Platelet Count 255 K/mcL (140-400); Red Blood Count 3.75 M/mcL (4.19-5.50); Red Cell Distribution Width 14.7 % (11.5-14.5); Segmented Neutrophils % 75.4 %
[2017-03-02 04:12] LABS: Calcium 8.3 mg/dL (8.6-10.8); Potassium 3.8 mEq/L (3.5-4.5)
[2017-03-02] MEDS: *HR* Amiodarone 200 MG TABLET PO SCH (08:26)
[2017-03-02] MEDS ORDERED: *HR* OxyCODONE/APAP 10/325 TABLET PO PRN (09:03)
--- NOTE | 2017-03-02 10:21 | ECHO - Doppler Report ---
Echocardiogram Name: Ike Rey Date of Study: 03/01/2017 Date: 1940 Ht: 71.0 in Medical Record#: [id number] Age: 76 Wt: 206.0 lb Gender: Male BSA: 2.14 Order #: [id number] Location: [facility] Room #: [id number] Reading Physician: Phoebe Polanco DO Manager Economic: Yasmin Mariee RVT Ordering Physician: Reji Gorman MD Primary Physician: Hector Shabazz MD Indications: Eval EF and WMA Impressions: LVEF 40-45%. Global LV systolic dysfunction. Normal right ventricular size and function. Mild aortic regurgitation. Mild mitral regurgitation. Mild-moderate tricuspid regurgitation. Mild pulmonic regurgitation. No pulmonary hypertension. Left Ventricular Wall Motion: Rest Echo Findings The apex, apical inferior, mid inferior, basal inferior, apical anterior, mid anterior, basal anterior, apical septal, mid inferior septal, basal inferior septal, apical lateral, mid anterior lateral, basal anterior lateral, mid anterior septal, mid inferior lateral, basal anterior septal and basal inferior lateral hendrickson were hypokinetic. Findings: Study Quality * Technically adequate exam. ECG Findings * Atrial fibrillation. Left Atrium * Moderately dilated left atrium. Mitral Valve * Normal mitral valve structure. * No mitral stenosis. * Mild mitral regurgitation. Aorta * Normally sized aortic root. Aortic Valve * Mild aortic regurgitation. * Trileaflet aortic valve. * Mildly calcified aortic valve leaflets. * No aortic stenosis. Tricuspid Valve * Normal tricuspid valve structure. * Mild-moderate tricuspid regurgitation. * Estimated RA pressure is 3 mmHg. * Estimated RVSP is 30 mmHg. * No pulmonary hypertension. Pulmonic Valve * Pulmonic valve is not well visualized. * No pulmonic stenosis. * Mild pulmonic regurgitation. Pulmonary Artery * Pulmonary artery not well visualized. Right Atrium * Severely dilated right atrium. Right Ventricle * Normal right ventricular structure and function. Interatrial Septum * No evidence of PFO by color Doppler. IVC * Normal IVC dimensions and inspiratory collapse. Pericardium * There is no pericardial effusion present. Left Ventricle * LVEF 40-45%. * Normal LV size. * Indeterminate diastolic function. History Hypertension History of CAD/PTCA Myocardial Infarction Congestive Heart Failure Pacer/ICD Implant 05/18/2013 a Previous Echo was performed. Measurements: BP: 126/ 78 2D Normal Values RVIDd: 3.30 cm <2.7 cm IVSd: 1.00 cm 0.6 - 1.0 cm LVIDd: 5.20 cm 3.7 - 5.6 cm LVPWd: 1.20 cm 0.6 - 1.1 cm LVIDs: 3.70 cm 1.5 - 3.6 cm AO: 2.70 cm < 4.0 cm LA: 4.40 cm 2.0 - 4.0cm %FS: 28.80 cm >25 % LA volume: 68 Mitral Valve Peak E:.97 m/sec Peak E' Lat Cortez:13.5 cm/s Peak E' Med Cortez:8.97 cm/s E/E' Lat Ratio:7.2 E/E' Med Ratio:10.8 Aortic Valve AI pressure Half-time: 721.00 msec Tricuspid Valve TV Regurg Peak Grad: 27.00mmHg TV Regurg Peak Cortez: 2.59m/sec Updated by Phoebe Polanco on 03/02/2017 10:13:04 AM electronically signed on 03/02/2017 10:14:53 AM with status of Final Wall Motion Merlos: 1=Normal, 2=Hypokinesis, 3=Akinesis, 4=Dyskinesis, 5=Aneurysmal, 6=Hyperkinetic, X=Not Visualized (Blank)=Missing
--- NOTE | 2017-03-02 11:59 | Discharge Summary ---
Date of Encounter: 03/02/17 Time of Encounter: 11:59 - Discharge Diagnosis (1) Acute renal failure Priority: Primary Status: Acute Qualifiers: Acute renal failure type: unspecified Qualified Code(s): N17.9 - Acute kidney failure, unspecified (2) Hyperbilirubinemia Priority: Secondary Status: Chronic (3) Pancreatic mass Priority: Secondary Status: Chronic (4) COPD (chronic obstructive pulmonary disease) Priority: Secondary Status: Chronic Qualifiers: COPD type: unspecified COPD Qualified Code(s): J44.9 - Chronic obstructive pulmonary disease, unspecified (5) History of DVT (deep vein thrombosis) Priority: Secondary Status: Chronic (6) Afib Priority: Secondary Status: Chronic Qualifiers: Atrial fibrillation type: chronic Qualified Code(s): I48.2 - Chronic atrial fibrillation - Discharge Medications Home Medications: Aspirin Enteric Coated [Aspirin EC] 81 mg PO DAILY 04/15/16 [History] Oxycodone HCl/Acetaminophen [Percocet 10-325 mg Tablet] 1 tab PO Q6H PRN [History] Amiodarone HCl [Pacerone] 400 mg PO DAILY 02/19/17 [History] Warfarin [Coumadin] 2.5 mg PO DAILY 02/19/17 [History] Carvedilol [Coreg] 25 mg PO BID 02/26/17 [History] Lisinopril [Zestril] 10 mg PO DAILY 02/26/17 [History] Docusate [Colace] 100 mg PO BID PRN #0 capsule 03/02/17 [Rx] Furosemide [Lasix] 20 mg PO DAILY #0 03/02/17 [Rx] Allergies/Adverse Reactions: Allergies shellfish derived Allergy (Verified 03/01/17 21:13) Hives Procedures/tests Complete & Pending: Procedures Performed prior 72 hours Category Date Time Status EV echocardiogram Routine Y 03/01/17 13:51 Completed Date of admission: 02/27/17 21:28 Primary care physician: Hector Shabazz MD Discharging clinician: Reji Gorman Anticipated date of discharge: 03/02/17 - Patient Status Disposition: Home, Self-Care Condition: Good Functional capacity at discharge: independent ambulation Overall status at discharge: patient is back to baseline - Discharge Instructions Follow Up With: Hector Shabazz MD [Primary Care Provider] - 03/05/17 1:15 pm () - Diet and Activity Activity: resume usual activities as tolerated Diet: low salt diet Interval History: See below Hospital course: Mr. Rey is a 76 YO M with PMH of CAD s/p RCA CORTEZ (2012), Mild AI per prior ECHO, Afib on anticoagulation, DVT, PVD, COPD, HTN, Obstructive jaundice s/p ERCP for pancreatic mass, biopsy report pending Admitted for management of MYRANDA, suspected to be contrast induced in the setting of patient with cardiac disease and on ACEI/Diuretics Patient's creatinine has ranged 3.75 on admission, over the last 3 days, trending down. Creatinine has improved to 1.6 and GFR has improved from 16 to 41. His baseline Cr is ~1.1 Patient makes urine adequately Patient received IV contrast for a chest CT on 01/23 and then again for CT abdomen on 02/11 and later that same day for a CTA. Patient likely had contrast related nephropathy. Received 2L IVF bolus and maintenance at 100mL/hr,with improved urine output and improvement in creatinine Renal USS done was unremarkable for chronic kidney disease or obstruction. Urine esosinophils negative Patient was on lisinopril and lasix which were held during this admission due to MYRANDA Patient adamantly refused to be evaluated by nephrology during this admission ECHO done during admission showed LVEF 40-45%, global LV systolic dysfunction, mild AR/MR/TR/Pulmonic regurgitation, multiple wall motion hypokinesis. This is his first ECHO done at this facility, patient dis not and does not have chest pain in his admission and has no extra O2 requirement. He has a hx of Afib on amiodarone, continue coreg,l and resume his lisinopril and lasix. INR was subtherapeutic as patient was on heparin bridge and coumadin had been held for 13 days prior to admission due to GI procedure Chemistry has been scheduled for the next 3 days with follow up with PCP to ensure continued renal function improvement. Patient will be seen by Dr. Roajs prior to discharge as he previously had an appointment for follow up of his pancreatic mass Plan of care discussed with patient, verbalized understanding Declined any social needs - Time Spent with Patient Total time spent providing and/or coordinating discharge services: Greater than 30 minutes (40 minutes spent on patient encounter, chart review, medication reconciliation and patient education, and documentation) - Constitutional Vitals: Temp Pulse Resp BP Pulse Ox 98.3 F 75 16 123/80 97 03/02/17 11:47 03/02/17 11:47 03/02/17 11:47 03/02/17 11:47 03/02/17 11:47 General appearance: Present: A&O X 3, pleasant, no acute distress - Head Head exam: Present: atraumatic, normocephalic - Eye Eye exam: Present: PERRL, conjuntiva pink, sclera anicteric Pupils: Present: PERRL - Neck Neck exam general surgery: Present: supple, trachea midline. Absent: lymphadenopathy - Respiratory Respiratory exam: Present: CTAB. Absent: accessory muscle use, rales, rhonchi, wheezes - Cardiovascular Cardiovascular exam: Present: RRR, +S1, +S2. Absent: diastolic murmur, gallop, rubs, systolic murmur - GI/Abdominal GI/Abdominal exam: Present: normal bowel sounds, soft, no peritoneal signs. Absent: distended, tenderness - Extremities Exam Extremities exam: Present: warm, radial pulses palpable and symetrical. Absent : calf tenderness, cyanotic, pedal edema Additional comments: Diffuse venous varices of both LE with skin icterus - Neurological Exam Neurological exam: Present: alert, CN II-XII intact, oriented X3, no focal deficits. Absent: pronater drift, facial droop, speech deficit - Skin Skin exam: Present: dry, intact - VTE Documentation of Mechanical Device: Graduated compression elastic hosiery
[2017-03-02] MEDS: 0.9 % Sodium Chloride 1,000 ML IVC SCH (12:11)
[2017-03-02 16:01] VITALS: BP 118/86
[2017-03-02] MEDS: *HR* Warfarin 2.5 MG TABLET PO SCH (17:12)
== END 2017-03-02 19:12 | disposition home or self-care (01) | DRG 684 ==
LOC: EMEROO 15:26 → 2ANU 15:26
PROVIDERS: ADMIT Hospitalist; ATTEND Internal Medicine